=== PATIENT | female | born 1990 | race Caucasian/White ===

== ENCOUNTER 2019-05-01 13:23 | Outpatient (CLI) | payer BC ==
--- NOTE | 2019-05-01 19:50 | Ultrasound Report ---
Reason: TEST POSITIVE Procedure Date: 05/01/2019 Accession Number: [id number] / [id number] Procedure: US - OB First Trimester CPT Code: FULL RESULT: EXAM: FIRST TRIMESTER OBSTETRIC ULTRASOUND (Less than 11 weeks) EXAM DATE: 05/01/2019 02:53 PM. CLINICAL HISTORY: TEST POSITIVE. LMP: Unknown. COMPARISONS: None. TECHNIQUE: Transabdominal and transvaginal ultrasound examination with static image documentation. ASSESSMENT: Gestational Sac: Single intrauterine. Mean gestational sac diameter: 37 mm = 9 weeks/1 days. Embryo: CRL (crown-rump length) 21 mm = 8 weeks/5 days. Cardiac activity: 171 beats per minute. Yolk sac: Seen Amniotic fluid: Not accurately assessed at this gestational age. Early placenta: Not visible at this gestational age. Other: No perigestational fluid collection demonstrated. Maternal structures.: No adnexal mass or free fluid. Right ovarian corpus luteal cyst measuring 3.3 x 1.7 x 2.9 cm. IMPRESSION: 1. Single viable intrauterine at EGA 8 weeks/5 days with KEIKO 12/06/19 based on crown-rump length. RADIA
== END 2019-05-01 13:24 | disposition home or self-care (01) ==
LOC: DI 13:23
PROVIDERS: ATTEND Obstetrics & Gynecology
DX: Z32.01 Encounter for pregnancy test, result positive (principal)
CPT/HCPCS: 76801; 76817

== ENCOUNTER 2019-05-08 12:29 | Outpatient (CLI) | payer BC ==
[2019-05-08 15:20] LABS: MUDS CUTOFF CONCENTRATIONS CUTOFF CONC BELOW:
[2019-05-08 15:30] LABS: BILIRUBIN,URINE NEGATIVE (NEGATIVE); GLUCOSE, URINE (UA) NEGATIVE (NEGATIVE); KETONES,URINE (UA) NEGATIVE (NEGATIVE); LEUKOCYTE ESTERASE, URINE NEGATIVE (NEGATIVE); NITRITE,URINE NEGATIVE (NEGATIVE); OCCULT BLOOD,URINE NEGATIVE (NEGATIVE); PROTEIN,URINE NEGATIVE (NEGATIVE); UROBILINOGEN,URINE 0.2 (NORMAL) E.U./dL (NORMAL)
[2019-05-08 15:48] LABS: BACTERIA,URINE None Seen /HPF (None Seen); CLARITY,URINE CLEAR (CLEAR); RBC,URINE None Seen /HPF (0-5); SQUAMOUS EPITHELIAL CELL,UR RARE Squamous (<= Few)
[2019-05-08 15:54] LABS: AMPHETAMINE SCREEN,URINE NEGATIVE (NEGATIVE); BENZODIAZEPINES SCREEN, URINE NEGATIVE (NEGATIVE); COCAINE SCREEN URINE NEGATIVE (NEGATIVE); METHADONE SCREEN, URINE NEGATIVE (NEGATIVE); METHAMPHETAMINES SCREEN, URINE NEGATIVE (NEGATIVE); OPIATE SCREEN, URINE NEGATIVE (NEGATIVE); TRICYCLIC ANTIDEPRESSANT,URINE NEGATIVE (NEGATIVE)
[2019-05-08 15:55] LABS: OXYCODONE SCREEN, URINE NEGATIVE (NEGATIVE); PROPOXYPHENE SCREEN, URINE NEGATIVE (NEGATIVE)
== END 2019-05-08 23:59 | disposition home or self-care (01) ==
LOC: LAB.R 12:29
PROVIDERS: ATTEND Nurse Practitioner Obstetrics & Gynecology
DX: Z36.89 Encounter for other specified antenatal screening (principal)
CPT/HCPCS: 80306; 81001; 87086

== ENCOUNTER 2019-05-15 08:00 | Outpatient (CLI) | payer BC ==
[2019-05-15 18:43] LABS: BASOPHILS % (AUTO) 0.2 %; EOSINOPHILS # (AUTO) 0.1 10^3/uL (0.0-0.7); EOSINOPHILS % (AUTO) 0.6 %; HGB - HEMOGLOBIN 11.7 g/dL (12.0-16.0); LYMPHOCYTES # (AUTO) 1.3 10^3/uL (1.5-3.5); LYMPHOCYTES % (AUTO) 15.4 %; MEAN CORPUSCULAR HEMOGLOBIN 28.5 pg (27.0-31.0); MEAN CORPUSCULAR VOLUME 83.7 fL (81.0-99.0); MEAN PLATELET VOLUME 9.1 fL (7.9-10.8); MONOCYTES # (AUTO) 0.4 10^3/uL (0.0-1.0); MONOCYTES % (AUTO) 4.9 %; NEUTROPHILS # (AUTO) 6.5 10^3/uL (1.5-6.6); NEUTROPHILS % (AUTO) 78.5 %; PLT - PLATELET COUNT 243 10^3/uL (130-450); RED BLOOD COUNT 4.11 10^6/uL (4.20-5.40); RED CELL DISTRIBUTION WIDTH 12.3 % (12.0-15.0); WHITE BLOOD COUNT 8.2 x10^3/uL (4.8-10.8)
[2019-05-16 15:26] LABS: HEPATITIS B SURFACE ANTIGEN NON-REACTIVE (NON-REACTIVE)
[2019-05-16 16:09] LABS: HIV AG/AB 4TH GEN NON-REACTIVE (NON-REACTIVE)
[2019-05-17 14:11] LABS: HEPATITIS C ANTIBODY NON-REACTIVE (NON-REACTIVE)
== END 2019-05-15 23:59 | disposition home or self-care (01) ==
LOC: LAB.N 08:00
PROVIDERS: ATTEND Nurse Practitioner Obstetrics & Gynecology
DX: Z36.89 Encounter for other specified antenatal screening (principal)
CPT/HCPCS: 36415; 81599; 85025; 86762; 86803; 86850; 86900; 86901; 87340; 87389

== ENCOUNTER 2019-06-22 14:43 | Outpatient (CLI) | payer BC | END 2019-06-22 14:44 | disposition home or self-care (01) | LOC: LAB 14:43 | PROVIDERS: ATTEND Nurse Practitioner Obstetrics & Gynecology | DX: Z36.8A Encounter for antenatal screening for other genetic defects (principal) | CPT/HCPCS: 36415; 81511; 81599 ==

== ENCOUNTER 2019-07-17 07:58 | Outpatient (CLI) | payer BC ==
--- NOTE | 2019-07-17 10:36 | Ultrasound Report ---
Reason: SUPERVISION OF Procedure Date: 07/17/2019 Accession Number: [id number] / [id number] Procedure: US - OB Detailed Eval CPT Code: FULL RESULT: EXAM: COMPLETE OBSTETRICAL ULTRASOUND EXAM DATE: 07/17/2019 10:05 AM. CLINICAL HISTORY: anatomic survey. COMPARISON: None. TECHNIQUE: Real-time sonographic evaluation of the fetus performed by the meter tester polyphase. Multiple circulation sales representative static images were saved for review. DATING: Established EGA 20 weeks 2 days with KEIKO 12/02/2019 based on LMP/working due date. EGA 19 weeks 5 days with KEIKO 12/06/2019 based on prior ultrasound. EGA 19 weeks 5 days with KEIKO 12/06/2019 based on the current ultrasound. GENERAL EVALUATION [place] . Cardiac activity: 141 bpm. movement: Visualized. Presentation: Variable. Placenta: Anterior position. No evidence for previa. Umbilical cord: 3 vessel cord. Central placental cord origin. Amniotic fluid: Subjectively normal. MVP 4.9 cm. BIOMETRY Bi-Parietal Diameter (BPD): 4.3 cm, 19 weeks 0 days Head Circumference (HC): 16.8 cm, 19 weeks 4 days Abdominal Circumference (AC): 15.2 cm, 20 weeks 3 days Femur Length (FL): 3.2 cm, 20 weeks 0 days Estimated Weight: 334 g, 32nd percentile for 20 weeks 2 days. ANATOMY The intracranial structures, profile, face/nose/lips, spine, 4 chamber heart and outflow tracts, stomach, abdominal wall and cord insertion, diaphragm, kidneys, bladder, and extremities were visualized and demonstrate no abnormality. MATERNAL STRUCTURES Uterus: Unremarkable. Cervix: Long and closed. Transabdominal length 3.9 cm. Right ovary/adnexa: Unremarkable. Left ovary/adnexa: Unremarkable. Free fluid: None. IMPRESSION: 1. West live intrauterine with gestational age 20 weeks 2 days based on LMP/working due date. 2. Estimated weight is within expected limits for assigned dating. 3. Normal anatomic survey. No anatomic abnormalities are detected at this time. RADIA
== END 2019-07-17 07:59 | disposition home or self-care (01) ==
LOC: DI 07:58
PROVIDERS: ATTEND Obstetrics & Gynecology
DX: Z34.92 Encounter for supervision of normal pregnancy, unspecified, second trimester (principal)
CPT/HCPCS: 76811

== ENCOUNTER 2019-09-07 16:11 | Outpatient (CLI) | payer BC ==
[2019-09-07 17:34] LABS: HGB - HEMOGLOBIN 11.1 g/dL (12.0-16.0); MEAN CORPUSCULAR HEMOGLOBIN 30.1 pg (27.0-31.0); MEAN CORPUSCULAR HGB CONC 33.6 g/dL (32.0-36.0); MEAN CORPUSCULAR VOLUME 89.4 fL (81.0-99.0); MEAN PLATELET VOLUME 8.5 fL (7.9-10.8); RED BLOOD COUNT 3.69 10^6/uL (4.20-5.40); RED CELL DISTRIBUTION WIDTH 12.5 % (12.0-15.0); WHITE BLOOD COUNT 8.1 x10^3/uL (4.8-10.8)
== END 2019-09-07 16:12 | disposition home or self-care (01) ==
LOC: LAB 16:11
PROVIDERS: ATTEND Nurse Practitioner Obstetrics & Gynecology
DX: Z36.89 Encounter for other specified antenatal screening (principal)
CPT/HCPCS: 36415; 82950; 85027; 86850

== ENCOUNTER 2019-11-02 08:00 | Outpatient (CLI) | payer BC, OTHER ==
[2019-11-02 19:37] LABS: TRICHOMONAS VAGINALIS DNA NEGATIVE (NEGATIVE)
== END 2019-11-02 23:59 | disposition home or self-care (01) ==
LOC: LAB.R 08:00
PROVIDERS: ATTEND Nurse Practitioner Obstetrics & Gynecology
DX: Z36.89 Encounter for other specified antenatal screening (principal)
CPT/HCPCS: 87491; 87591; 87661; 87797

== ENCOUNTER 2019-11-09 13:53 | Outpatient (CLI) | payer OTHER ==
[2019-11-09 14:10] LABS: HGB - HEMOGLOBIN 12.2 g/dL (12.0-16.0); MEAN CORPUSCULAR HGB CONC 34.1 g/dL (32.0-36.0); MEAN CORPUSCULAR VOLUME 91.1 fL (81.0-99.0); MEAN PLATELET VOLUME 8.6 fL (7.9-10.8); RED BLOOD COUNT 3.93 10^6/uL (4.20-5.40); RED CELL DISTRIBUTION WIDTH 13.2 % (12.0-15.0)
[2019-11-09 14:22] LABS: ALBUMIN 3.2 g/dL (3.2-5.5); ALBUMIN/GLOBULIN RATIO 0.9 (1.0-2.2); BILIRUBIN,TOTAL 0.5 mg/dL (0.2-1.0); CREATININE 0.7 mg/dL (0.4-1.0); TOTAL PROTEIN 6.7 g/dL (6.7-8.2)
== END 2019-11-09 13:54 | disposition home or self-care (01) ==
LOC: LAB 13:53
PROVIDERS: ATTEND Nurse Practitioner Obstetrics & Gynecology
DX: O12.13 Gestational proteinuria, third trimester (principal); Z3A.00 Weeks of gestation of pregnancy not specified
CPT/HCPCS: 36415; 80053; 84550; 85027

== ENCOUNTER 2019-11-11 11:31 | Outpatient (CLI) | payer OTHER ==
[2019-11-11 12:21] LABS: CREATININE,URINE 70.7 mg/dL
[2019-11-11 13:28] LABS: TOTAL VOLUME,URINE 2550 mL
== END 2019-11-11 11:32 | disposition home or self-care (01) ==
LOC: LAB 11:31
PROVIDERS: ATTEND Nurse Practitioner Obstetrics & Gynecology
DX: O12.13 Gestational proteinuria, third trimester (principal); Z3A.00 Weeks of gestation of pregnancy not specified
CPT/HCPCS: 82575; 84156

== ENCOUNTER 2019-11-26 06:30 | Inpatient (IN) | payer OTHER ==
[2019-11-26] MEDS ORDERED: SODIUM CHLORIDE FLUSH 0.9% 10 ML SYRINGE IVP PRN (07:19)
[2019-11-26] MEDS ORDERED: ONDANSETRON 4 MG/2 ML VIAL IVP PRN ×2 (07:19→17:15)
--- NOTE | 2019-11-26 07:22 | HISTORY & PHYSICAL EXAMINATION ---
Admit History - Visit Reason Visit Reason: Other - : 2 Parity: 1 Premature: 0 Ectopic: 0 : 0 Care: positive: [facility] Risk/History: positive: None Complications This : positive: None Smoking Status: Never smoker - Mother's Labs Mother's Blood Type: positive: O Mother's RH: positive: Positive GBS: positive: Group B Step Negative Rubella Status: positive: Equivocal - Other Maternal History Other Maternal History: HPI: This 28yo @ 39.1wks gestation by LMP c/w 8.5wk U/S presents to [facility] for induction of labor secondary to proteinuria without the diagnosis of preeclampsia. She has been a patient of [facility] through the duration of her which as remained complicated only by slightly elevated BP at 36wks gestation followed by normal PIH labs with the exception of elevated 24 hour urine protein to 332mg. She has checked her BP 4 x times daily and all values have remained WNL. Upon arrival she reports contractions yesterday afternoon and into the evening that were every 10 minutes lasting 40- 60 seconds. She took a bath and then the contractions resolved. She denies vaginal bleeding or leakage of fluid and reports +FM. SHe denies VILLLAOBOS, visual disturbances, RUQ or epigastric pain. Cervix this morning is 3/50/-3, posterior, soft, vertex with intact membranes. She was admitted for active management of labor. Her is supportive at the bedside. Dating criteria: LMP 02/25/2019 Initial ultrasound @ 8.5wks c/w LMP dating Serial exams - agree OB Hx: G1: 08/22/2016 @ 40.5wks gestation, NVSD, 9rh labor, epidural, delivery @ [facility], 3ylm7xy female G2: Current Allergies: Amoxicillin Pertussis Vaccination Medications: Sertraline 50mg 1 tab PO daily PNV PMHx: Asthma- mild, intermittent; Anxiety Surgical Hx: [place] teeth Social Hx: Never smoker, no ETOH or IVDA. 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 Family Hx: Heart disease- father (4 MIs prior to age 50); Hodgkin's lymphoma- mother, maternal uncle; breast cancer- MGM, PGM; Melanoma - MGM, Father; Anxiety - brother; mother Hx: O pos Rubella EQUIVOCAL - MMR Glucola - 128 GBS negative Genetic testing: Quad screen negative Ultrasounds: Initial ultrasound 05/01/2019 @ 8.5wks c/w LMP dating FAS WNL, 3VC. Anterior placenta, no previa. Size c/w dating. Physical Exam: Normocephalic, atraumatic Heart RRR w/o M/G/R Lungs CTAB Abdomen gravid, soft, nontender EFW 3100g FHR baseline 140s, moderate variability, + accels, no decels Contractions intermittent, mild SVE 3/50/-3, posterior, soft, vertex with intact membranes Bilateral LE's no edema Mood is good; supportive at the bedside Assessment: 28yo @ 39.1wks gestation by LMP c/w 8.5wk U/S GBS neg Proteinuria without the diagnosis of preeclampsia - BP normotensive Induction of labor secondary to proteinuria Plan: Initiate pitocin with titration per protocol Continuous monitoring Jacuzzi PRN Encouraged ambulation and frequent position changes Epidural PRN Consider AROM with next check if head well engaged Anticipate Meds/Allgy - Allergies Allergies/Adverse Reactions: Allergies Allergy/AdvReac Type Severity Reaction Status Date / Time Pertussis Vaccines AdvReac Unknown Unknown Verified 08/21/16 23:45 amoxicillin AdvReac Rash Verified 08/21/16 23:43
[2019-11-26] MEDS ORDERED: OXYTOCIN/DEXTROSE 5 % 30 UNIT/500 ML BAG IV SCH (08:00)
[2019-11-26 08:13] LABS: BASOPHILS % (AUTO) 0.4 %; EOSINOPHILS # (AUTO) 0.1 10^3/uL (0.0-0.7); EOSINOPHILS % (AUTO) 1.3 %; HGB - HEMOGLOBIN 11.1 g/dL (12.0-16.0); LYMPHOCYTES # (AUTO) 1.9 10^3/uL (1.5-3.5); LYMPHOCYTES % (AUTO) 26.1 %; MEAN CORPUSCULAR HEMOGLOBIN 29.9 pg (27.0-31.0); MEAN CORPUSCULAR HGB CONC 33.7 g/dL (32.0-36.0); MEAN CORPUSCULAR VOLUME 88.7 fL (81.0-99.0); MEAN PLATELET VOLUME 9.4 fL (7.9-10.8); MONOCYTES # (AUTO) 0.4 10^3/uL (0.0-1.0); MONOCYTES % (AUTO) 6.2 %; NEUTROPHILS # (AUTO) 4.7 10^3/uL (1.5-6.6); NEUTROPHILS % (AUTO) 65.6 %; PLT - PLATELET COUNT 209 10^3/uL (130-450); RED BLOOD COUNT 3.71 10^6/uL (4.20-5.40); RED CELL DISTRIBUTION WIDTH 12.9 % (12.0-15.0); WHITE BLOOD COUNT 7.1 x10^3/uL (4.8-10.8)
[2019-11-26] MEDS ORDERED: LACTATED RINGERS 1,000 ML IV ONE (08:36)
[2019-11-26] MEDS: LACTATED RINGERS 1,000 ML IV SCH ×3 (08:40→19:47)
[2019-11-26] MEDS ORDERED: SODIUM CHLORIDE FLUSH 0.9% 10 ML SYRINGE IVP SCH (09:00)
--- NOTE | 2019-11-26 11:31 | PROVIDER PROGRESS NOTE ---
Labor Progress Note - Uterine Monitoring Uterine Monitoring Mode: positive: External toco Contraction Frequency (min/apart): 4-6 Contraction Intensity: positive: Moderate Uterine Resting Tone: positive: Soft - Monitoring Monitor Mode: positive: External ultrasound Heart Rate Baseline: 145 Heart Rate Variability: positive: Moderate (6-25 bmp) Accelerations: positive: Present, 15x15 Decelerations: positive: None Strip Review: positive: Category I - Labor Progress Note Labor Progress Note/Additional Text: S: Bouncing on exercise ball at bedside. Reports feeling increased contractions but rating them 4/10. Mood is good. supportive at the bedside. They both deny concerns or complaints at this time. O: FHR baseline 145, moderate variability, + accels, no decels Contractions palpate moderate every 4-6 minutes with soft resting tone SVE deferred at this time Pitocin currently infusing at 5mU/mL A: 28yo @ 39.1wks gestation GBS neg Proteinuria without diagnosis of preeclampsia- normotensive Induction of labor P: Continue titration of pitocin for induction of labor per protocol Continuous monitoring Encouraged ambulation and position changes Epidural PRN Anticipate Pt and both verbalized understanding and agree to above plan. They deny questions or concerns at this time.
--- NOTE | 2019-11-26 15:39 | PROVIDER PROGRESS NOTE ---
Labor Progress Note - Uterine Monitoring Uterine Monitoring Mode: positive: External toco Contraction Frequency (min/apart): 3 Contraction Intensity: positive: Moderate Uterine Resting Tone: positive: Soft - Monitoring Monitor Mode: positive: External ultrasound Heart Rate Baseline: 140 Heart Rate Variability: positive: Moderate (6-25 bmp) Accelerations: positive: Present, 15x15 Decelerations: positive: None Strip Review: positive: Category I - Vaginal Exam Dilation (in cm): 4-5 Effacement (%): 70 Station: -2 Cervical Position: Midposition - Labor Progress Note Labor Progress Note/Additional Text: S: Patient walking that halls upon my arrival and states her contractions and de finitely picking up in both frequency and intensity. She is doing well emotionally and feeling good about the way things are progressing. supportive at the bedside. O: FHR baseline 140s, moderate variability, + accels, no decels Contractions palpate moderate every 3 minutes with soft resting tone SVE 4-5/70/-2, midposition, soft, vertex AROM at 1530 noted to be a moderate amount of clear fluid A: 28yo @ 39.1wks gestation Early labor Proteinuria without diagnosis of preeclampsia- has remained normotensive GBS neg P: Continue titration of pitocin per protocol Continuous monitoring Encouraged ambulation and frequent positions changes Epidural per patient request Anticipate .
[2019-11-26] MEDS ORDERED: ROPIVACAINE 0.2% 200 MG/100 ML BAG EP ONE (16:40)
[2019-11-26] MEDS ORDERED: LIDOCAINE-MPF 1% 30 ML VIAL ONE (16:40)
[2019-11-26] MEDS ORDERED: ROPIVACAINE 0.2% 200 MG/100 ML BAG EP PRN (17:15)
[2019-11-26] MEDS ORDERED: diphenhydrAMINE INJ 50 MG/ML VIAL IVP PRN (17:15)
[2019-11-26] MEDS ORDERED: METOCLOPRAMIDE 10 MG/2 ML VIAL IVP PRN (17:15)
[2019-11-26] MEDS ORDERED: NALOXONE 0.4 MG/ML VIAL IVP PRN (17:15)
[2019-11-26] MEDS ORDERED: ePHEDrine 50 MG/ML VIAL IVP PRN (17:15)
[2019-11-26] MEDS ORDERED: LACTATED RINGERS 500 ML IV ONE (17:15)
[2019-11-26] MEDS ORDERED: NALBUPHINE 10 MG/ML AMP IVP PRN (17:15)
--- NOTE | 2019-11-26 17:18 | ANESTHESIA ---
Pre-Anesthesia VS, & Labs - Diagnosis active labor - Procedure СЕРГЕЙ Height 5 ft 6 in Weight (kg) 79.379 kg - Is Patient ?: Yes - Lab Results Current Lab Results: Laboratory Tests 11/26/19 07:35: WBC 7.1, RBC 3.71 L, Hgb 11.1 L, Hct 32.9 L, MCV 88.7, MCH 29.9, MCHC 33.7, RDW 12.9, Plt Count 209, MPV 9.4, Neut # (Auto) 4.7, Lymph # (Auto) 1.9, [place] # (Auto) 0.4, Eos # (Auto) 0.1, Baso # (Auto) 0.0, Absolute Nucleated RBC 0.00, Nucleated RBC % 0.0 Fish Bones: 11/26/19 07:35 Home Medications and Allergies Active Medications Diphenhydramine HCl (Benadryl Inj) 12.5 - 25 mg IVP Q6HR PRN PRN Reason: ITCHING Ephedrine Sulfate () 5 mg IVP Q5M PRN PRN Reason: For SBP<100;give until SBP>100 OXYTOCIN/DEXTROSE 5 % (Pitocin/Dextrose 5%) 30 unit in 500 mls @ 1 mls/hr IV TITR [facility]; Protocol Last Titration: 11/26/19 17:15 Dose: 7 milliunit/min, 7 mls/hr Lactated Ringer's (Lr) 1,000 mls @ 150 mls/hr IV .Q6H40M APPLE Last Admin: 11/26/19 15:34 Dose: 150 mls/hr Lactated Ringer's (Lr) 500 mls @ 999 mls/hr IV ONCE ONE Stop: 11/26/19 17:45 Ropivacaine (Naropin 0.2%) 200 mg in 100 mls @ 0 mls/hr EP PRN PRN; Protocol PRN Reason: PAIN Metoclopramide HCl (Reglan Inj) 10 mg IVP Q6HR PRN PRN Reason: Nausea / Vomiting Nalbuphine HCl (Nubain) 2.5 - 5 mg IVP Q4H PRN PRN Reason: ITCHING Naloxone HCl (Narcan) 0.1 mg IVP Q2M PRN PRN Reason: RR<8 Ondansetron HCl (Zofran Inj) 4 mg IVP Q4HR PRN PRN Reason: Nausea / Vomiting Ondansetron HCl (Zofran Inj) 4 mg IVP Q6HR PRN PRN Reason: Nausea / Vomiting Sodium Chloride (Normal Saline Flush 0.9%) 10 ml IVP 0100,0900,1700 APPLE Sodium Chloride (Normal Saline Flush 0.9%) 10 ml IVP PRN PRN PRN Reason: NEEDED PER PROVIDER ORDERS Allergies/Adverse Reactions: Allergies Allergy/AdvReac Type Severity Reaction Status Date / Time Pertussis Vaccines AdvReac Unknown Unknown Verified 08/21/16 23:45 amoxicillin AdvReac Rash Verified 08/21/16 23:43 Anes History & Medical History - Anesthetic History Anesthesia Complications: reports: No previous complications Family history of Anesthesia Complications: Denies Family history of Malignant Hyperthermia: Denies - Medical History Cardiovascular: reports: None Pulmonary: reports: None Gastrointestinal: reports: None Urinary: reports: None Neuro: reports: None Musculoskeletal: reports: None Endocrine/Autoimmune: reports: None Blood Disorders: reports: None Skin: reports: None Smoking Status: Never smoker Psychosocial: reports: No issues indicated - Obstetrical History : 2 Parity: 1 Events: positive: None Complications: positive: None Exam General: Alert, Oriented x3, Cooperative, No acute distress Dental: WNL Mouth Openin Fingerbreadth Neck Mobility: Normal Mallampati classification: I Thyromental Distance: 4-6 cm Respiratory: Lungs clear, Normal breath sounds, No respiratory distress, No accessory muscle use Cardiovascular: Regular rate, Normal S1, Normal S2, No murmurs Abdomen: Normal bowel sounds, Soft, No tenderness, No hepatospenomegaly, No masses Extremities: No clubbing, No cyanosis, No edema, Normal pulses, No tendernes s/swelling Neurological: Normal gait, Normal speech, Strength at 5/5 X4 ext, Normal tone, Sensation intact, Cranial nerves 3-12 NL, Reflexes 2+ Mental/Cognitive Status: Alert/Oriented X3, Normal for patient Cognitive Status: Within normal limits Plan Anesthesia Type: Epidural Consent for Procedure(s) Verified and Reviewed: Yes Code Status: Attempt Resuscitation ASA classification: 2-Mild systemic disease Is this case an emergency?: No
[2019-11-26] MEDS ORDERED: HYDROCORTISONE 1% CREAM 28 GM TUBE PR PRN (22:06)
[2019-11-26] MEDS ORDERED: WITCH HAZEL/GLYCERIN 1 PAD TOP PRN (22:06)
[2019-11-26] MEDS ORDERED: OXYTOCIN/DEXTROSE 5 % 30 UNIT/500 ML BAG IV PRN (22:07)
--- NOTE | 2019-11-26 22:15 | DELIVERY NOTE ---
Delivery Note - Labor Labor: positive: Augmented by ARM, Induced by oxytocin - Delivery Method Infant Delivery Method: positive: Spontaneous vaginal delivery - Presentation Presentation: positive: Vertex, BRIDGETTE - right occiput anterior - Nuchal Cord Nuchal Cord: positive: None - Amniotic Fluid Description Amniotic Fluid Description: positive: Clear - Episiotomy Type Episiotomy Type: positive: None - Laceration Laceration: positive: None - Delivery Outcome Delivery Outcome: positive: Livebirth - : positive: Placed in direct skin contact with mother, Bulb syringe, Stimulated, Warmed, [place] used sex: positive: Female - Cord Cord: positive: 3 vessels - Placenta Placenta: positive: Intact, Spontaneous - Estimated Blood Loss Estimated Blood Loss (in cc): 350 - Post Delivery Events Post Delivery Events: positive: No post delivery events - Delivery Comments (Free Text/Narrative) Delivery Comments (Free Text/Narrative): Labor: This 28yo @ 39.1wks gestation by LMP c/w 8wk U/S presented to [facility] on 11/26/2019 at 0630 for induction of labor secondary to proteinuria in the absence of hypertension. Upon arrival cervix was 3/50/-3, posterior, soft, and vertex. FHR baseline demonstrated Category I pattern throughout labor. Pitocin was initiated for induction of labor with titration per protocol for a max infusion rate of 6mU/mL. AROM occurred at 1532 and was noted to be a moderate amount of clear fluid. Epidural placed per maternal request. Normal labor course. Patient progressed to c/c/+2 at 2110 with onset of active pushing at 2125. : Normal of viable female infant on 11/26/2019 @ 0935. BRIDGETTE position with right compound hand. No nuchal cord. The was stimulated, dried, and placed skin to skin. 's were 7/9 at 1 and 5 min respectively. Pitocin administered via IV for hemostasis. The umbilical cord was allowed to stop pulsating at which time it was doubly clamped by CNM and cut by FOB. Cord blood was obtained. 3VC. Placenta delivered spontaneously and intact at 0941. EBL 350mL. Fourth stage: Uterine fundus firm and there is no excessive bleeding. The perineum, vagina, and cervix were inspected and found to be intact. initiated. Family bonding well. Both mother and baby were left in stable condition.
[2019-11-26] MEDS: IBUPROFEN 800 MG TABLET PO SCH (23:06)
[2019-11-27] MEDS: ACETAMINOPHEN 500 MG TABLET PO SCH ×3 (04:31→19:31)
[2019-11-27] MEDS: IBUPROFEN 800 MG TABLET PO SCH ×3 (04:59→17:24)
[2019-11-27] MEDS: DOCUSATE SODIUM 100 MG CAPSULE PO SCH (11:00)
--- NOTE | 2019-11-27 12:47 | PROVIDER PROGRESS NOTE ---
Subjective - Subjective Subjective: S: Bonding well with baby. without difficulty. Bleeding decreased and is light. Pain well controlled with oral medications and she states she has only really been taking the medication as a precautions and is not feeling much pain at all. supportive at the bedside. O: Bp 110/78, HR 81, RR 18, T 36.5 Heart RRR w/o M/G/R, lungs CTAB, abdomen soft and nontender with fundus firm at U, light lochia rubra, bilateral LE's no edema. A: 28yo -->P2 PPD#1 s/p TSVD of viable female infant Perineum intact P: Continue routine pp care and medications. Evaluate for discharge home tomorrow. Pt verbalized understanding and agrees to above plan. She denies further questions or concerns at this time. Objective - Vital Signs/Intake & Output Vital Signs: Vital Signs x48h Temp Pulse Resp BP Pulse Ox 11/27/19 11:58 36.5 C 81 18 110/78 100 Intake & Output: Intake & Output 11/24/19 11/25/19 11/26/19 11/27/19 23:59 23:59 23:59 23:59 Intake Total 2407.183 Output Total 440 600 Balance 1967.183 -600 - Lab Results Fish Bones: 11/26/19 07:35
[2019-11-27] MEDS: SERTRALINE 50 MG TABLET PO SCH (20:21)
[2019-11-28] MEDS: IBUPROFEN 800 MG TABLET PO SCH ×2 (04:54→10:35)
[2019-11-28] MEDS: ACETAMINOPHEN 500 MG TABLET PO SCH (04:55)
--- NOTE | 2019-11-28 07:54 | PROVIDER PROGRESS NOTE ---
Subjective - Subjective Subjective: FINAL PROGRESS NOTE: S: Bonding well with baby. without difficulty. Pain well controlled with oral medications and she states she only noticed mild cramping with nursing. Bleeding decreased and is light. They are excited to go home today. supportive at the bedside. O: BP 123/83, HR 63, RR 16, T 37.0 Heart RRR w/o M/G/R, lungs CTAB, abdomen soft and nontender with fundus firm at U-2, bilateral LE's no edema A: 28yo -->P2 PPD#2 s/p TSVD of viable female infant breastfeeeding Perineum intact P: Reviewed pp self care and warning s/sx. Advised continuation of PNV while . Advised ibuprofen and tylenol OTC as needed for pain management. F/u in 3 weeks for routine pp visit or sooner PRN. Pt verbalized understanding and agrees to above plan. She denies further questions or concerns at this time. Objective - Vital Signs/Intake & Output Vital Signs: Vital Signs x48h Temp Pulse Resp BP Pulse Ox 11/28/19 06:44 37.0 C 63 16 123/83 H 100 Intake & Output: Intake & Output 11/25/19 11/26/19 11/27/19 11/28/19 23:59 23:59 23:59 23:59 Intake Total 2407.183 1000 500 Output Total 440 601 1 Balance 1967.183 399 499 - Lab Results Fish Bones: 11/26/19 07:35
--- NOTE | 2019-11-28 07:54 | Discharge Plan ---
Discharge Plan Problem Reviewed?: Yes Disposition: Home, Self Care Condition: Good Diet: Regular Activity Restrictions: No Restrictions Shower Restrictions: No Weight Bearing: Full Weight No Smoking: If you smoke, Please STOP! Call for help. Follow-up with: Meena Ha CNM, ARNP [Provider Admit Priv/Credential] -
--- NOTE | 2019-11-28 08:19 | DISCHARGE SUMMARY ---
Physician: NEYMAR Deshpande DATE OF ADMISSION: 11/26/2019 DATE OF DISCHARGE: 11/28/2019 DIAGNOSES ON ADMISSION 1. A 28-year-old -0-0-1, at 39.1 weeks' gestation. 2. Proteinuria without the diagnosis of preeclampsia; blood pressures remained normotensive. 3. Induction of labor secondary to proteinuria. 4. Group B Streptococcus negative. DIAGNOSES ON DISCHARGE 1. A 28-year-old -0-0-2, status post spontaneous vaginal delivery on 11/26/2019. 2. Normal recovery. 3. . HISTORY OF PRESENT ILLNESS: She is a patient of [facility] who presented on 020 for induction of labor secondary to proteinuria without the diagnosis of preeclampsia. Her blood pressure remained hypotensive throughout her intrapartum and antepartum course. Upon arrival, her c ervix was 3 cm dilated, 50% effaced, -3 station, posterior position, soft and vertex. Pitocin was in itiated for induction of labor with titration per protocol for a max infusion rate of 6 milliunits pe r mL. Artificial rupture of membranes occurred at 1532 and there was noted to be a moderate amount o f clear fluid. Epidural placed per maternal request. Normal labor course. Apgars were 7 and 9 at 1 and 5 minutes, respectively. The perineum, vagina and cervix were inspected and noted to be intact. EBL 350 mL. She has been doing well in her course. She is ambulating and tolerating a regular diet. She is urinating without difficulty and her lochia is normal. Her pain is well controlled with oral medications. She will be discharged home today on day with instructions to continue her p renatal vitamin while , and to continue ibuprofen and Tylenol [id number] as needed for pain management. She intends to followup with myself at [facility] in 3 weeks for routine visit or sooner if needed. She has been given precautions to call if she has any worsening fevers, chills, abdominal pain, increased bleeding or foul-smelling vaginal lochia. TD: 11/28/2019 08:02
[2019-11-28] MEDS: DOCUSATE SODIUM 100 MG CAPSULE PO SCH (10:35)
[2019-11-28] MEDS: SERTRALINE 50 MG TABLET PO SCH (10:36)
[2019-11-28 11:53] VITALS: BP 118/62
[2019-11-28] MEDS ORDERED: MEASLES,MUMPS & RUBELLA VACC 0.5 ML VIAL SUBQ ONE (12:00)
--- NOTE | 2019-11-28 14:14 | Labor Flowsheet ---
Labor Flowsheet Datetime Report Generated by CPN: 11/28/2019 14:14 Datetime: 11/28/2019 07:54 VITAL SIGNS NBP Sys/Romy/Mean (mmHg): 124 : 67 : 79 Pulse: 70 SpO2 (%): 100 LaborFlag: Labor Datetime: 11/26/2019 22:04 Membranes Ruptured Date/Time: 11/26/2019 15:32 Datetime: 11/26/2019 21:30 UTERINE ACTIVITY Monitor Mode: External Monitor Interventions for UA: [place] Adjusted Frequency (min): 2-3 Quality: Strong Duration (sec): 60-70 Pattern: Normal: <= 5 Contractions in 10 Minutes Resting Tone (Palpate): Relaxed Pitocin Checklist: At Least 1 Acceleration of 15 bpm x 15 Seconds in 30 Minutes or Adequate Variabi lity FHR Baseline Rate : 140 FHR Baseline Changes: No Baseline Change Variability: Moderate 6-25 bpm Accelerations: 15X15 Decelerations: Variable Category: Category II Pushing Position: Pushing with Contractions Pushing Progress: Descent with Pushing Datetime: 11/26/2019 21:15 Temperature (C): 37.1 ASSESSMENT A Monitor Mode: External US Pain Type: Cramping; Pressure Pain Location: Back STAGE 2 Pushing: Coached on Pushing Datetime: 11/26/2019 21:12 Exam by: [email or web address] Datetime: 11/26/2019 21:10 VAGINAL EXAM Dilatation (cm): 10.0 Effacement (%): 100 Station: 2 Datetime: 11/26/2019 20:52 PAIN Pain Scale: 3 Datetime: 11/26/2019 20:47 Patient Position/Activity: Right Lateral Datetime: 11/26/2019 20:45 Monitor Interventions for FHR: Ultrasound Adjusted Datetime: 11/26/2019 20:30 Membrane Status: Ruptured ANESTHESIA Anesthesia Plans: Epidural Anesthesia Level Check: T7 Datetime: 11/26/2019 20:18 Respirations: 18 Datetime: 11/26/2019 19:54 Patient Care Comments: Meena Dilcia phoned in and given an updated on pt status Datetime: 11/26/2019 19:31 Stage of : Labor Datetime: 11/26/2019 19:30 MATERNAL ASSESSMENT Level of Consciousness: Fully Conscious Headache: Denies Breath Sounds, Left: Clear and Equal Breath Sounds, Right: Clear and Equal Nausea/Vomiting: Denies RUQ Epigastric Pain: Denies Datetime: 11/26/2019 18:53 PATIENT CARE IV/Blood Work: IV Bolus Given ml @ 250 Datetime: 11/26/2019 18:33 I/O Interventions: Roland Cath Inserted Datetime: 11/26/2019 18:30 Comments: periods of minimal variability Pain Presence: None/Denies Cervix, Consistency: Soft Cervix, Position: Midposition Datetime: 11/26/2019 17:15 MEDICATIONS Pitocin (milliunits): Increased to @ 7 Datetime: 11/26/2019 17:01 Epidural Procedure Other: Pump Started Datetime: 11/26/2019 16:55 Epidural Procedure: Loading Dose Datetime: 11/26/2019 16:47 Anesthesia Comments: local Datetime: 11/26/2019 16:43 PROCEDURE TIME OUT Procedure Verify: Correct Patient Identity; Correct Side and Site are Marked; Accurate Procedure Co nsent Form; Agreement on Procedure to be Done; Correct Patient Position; Relevant Images and Results are Properly Labeled and Displayed; Addressed Need to Administer Antibiotics or Fluids for Irrigation ; Safety Precautions Based on Patient History or Medication Use Datetime: 11/26/2019 16:24 Epidural Positioning: Sitting Datetime: 11/26/2019 15:43 Pain Relief Measures: Comfort Measures Pain Coping: Breathing Through Contractions Comfort Measures: Breathing/Relaxation; Family Support Datetime: 11/26/2019 15:32 Membranes Rupture Method: Artificial Amniotic Fluid Color: Clear Amniotic Fluid Amount: Moderate Amniotic Fluid Odor: Normal Datetime: 11/26/2019 15:30 Vaginal Bleeding: None Provider Notified (Name): A Dilcia CNM Communication Comments: CNM at bedside. SVE 4.5/70/-2. AROM clear fluid. Continue plan of care Datetime: 11/26/2019 15:15 Contraction Comments: [place] not tracing well d/t maternal movement, RN at bedside adjusting Datetime: 11/26/2019 11:23 COMMUNICATION Communication: Provider at Bedside Datetime: 11/26/2019 10:25 Temperature Route: Oral
== END 2019-11-28 13:50 | disposition home or self-care (01) | DRG 807 ==
LOC: WFO 06:30 → FBP 06:37 → WFO 07:18 → FBP 07:19
PROVIDERS: ADMIT Nurse Practitioner Obstetrics & Gynecology; ATTEND Nurse Practitioner Obstetrics & Gynecology
PROC: 10E0XZZ Delivery of Products of Conception, External Approach (ICD-10-PCS; principal; 2019-11-26)
PROC: 10907ZC Drainage of Amniotic Fluid, Therapeutic from Products of Conception, Via Natural or Artificial Opening (ICD-10-PCS; 2019-11-26)
PROC: 3E033VJ Introduction of Other Hormone into Peripheral Vein, Percutaneous Approach (ICD-10-PCS; 2019-11-26)
DX: O12.13 Gestational proteinuria, third trimester (principal); Z37.0 Single live birth; O32.6XX0 Maternal care for compound presentation, not applicable or unspecified; O99.344 Other mental disorders complicating childbirth; F41.9 Anxiety disorder, unspecified; Z3A.39 39 weeks gestation of pregnancy; Z23 Encounter for immunization; Z79.899 Other long term (current) drug therapy
CPT/HCPCS: 85025; A9270; J7120